=== PATIENT | female | born 1995 | race Caucasian/White ===

== ENCOUNTER 2025-02-01 17:59 | Emergency (ER) | payer OTHER, SELFPAY ==
--- NOTE | ~2025-02-01 | XR_ITS ---
CLINICAL HISTORY: atraumatic pain and swelling Three views of the left ankle. COMPARISON: None provided. FINDINGS: No ankle joint effusion. Ankle mortise appears symmetric on non-stressed views. Talar dome appears intact. Distal tibia and fibula appear intact. Visualized tarsal bones appear intact. No radiopaque foreign body. IMPRESSION: 1. No radiographic evidence of acute injury to the left ankle. This document has been electronically signed by: Lane Taveras MD on 02/01/2025 19:40:20
--- NOTE | ~2025-02-01 | US_ITS ---
CLINICAL HISTORY: Calf family, family history of blood clot Venous duplex ultrasound left lower extremity Comparison: None provided Findings: The visualized deep veins are fully compressible with normal Doppler color flow and spectral tracings. No popliteal cyst. IMPRESSION: 1. Negative for left lower extremity deep vein thrombosis. This document has been electronically signed by: Michael Angel MD on 02/01/2025 22:14:04
[2025-02-01 18:49] VITALS: BP 127/92; PULSE 81; RESP 18; TEMP 36.6; O2SAT 95; BMI 30.5
--- NOTE | 2025-02-01 18:49 | ED_ITS ---
HPI - General Adult General Chief complaint: Extremity Injury, Lower Stated complaint: sent from urgent care Time Seen by Provider: 02/01/25 20:48 Source: patient Mode of arrival: ambulatory Limitations: no limitations History of Present Illness ED Provider: HPI narrative: Patient's strong family history of blood clots in the family patient never had any blood clot woke up in the morning was noticed swelling and pain in the left leg no recent travel not on any control pills no shortness a breath Related Data Allergies Allergy/AdvReac Type Severity Reaction Status Date / Time latex (LATEX) Allergy Intermediate RASH Verified 02/01/25 18:51 Penicillins (PENICILLINS) Allergy Intermediate RASH Verified 02/01/25 18:51 Latex Allergy Unknown rash Uncoded 06/04/17 00:00 Penicillin Allergy Unknown hives Uncoded 06/04/17 00:00 Review of Systems Review of Systems: Yes all other systems are reviewed and are negative PMFSH Social History Social History Advance Directives: No Advance Directives Information Provided: Yes Physical Exam ED Vital Signs: Vital Signs - 24 hr 02/01/25 18:49 02/01/25 20:50 02/01/25 23:19 Temperature 97.8 F 96.6 F L 96.6 F L Pulse Rate 81 90 90 Respiratory Rate 18 18 18 Blood Pressure 127/92 H 119/79 119/79 Pulse Oximetry 95 98 98 Oxygen Delivery Method Room Air Room Air Room Air BMI result Body Mass Index 30.5 Appearance: Alert. Oriented X3. No acute distress. Eyes: no pallor or icterus ENT: Pharynx normal Oral Mucosa moist tympanic membrane intact no erythema, Neck: Normal inspection. Neck supple. CVS: Normal heart rate and rhythm. Pulses normal. Respiratory: No respiratory distress. Equal air entry bilateral, no wheezing/rales/rhonchi Abd: soft, not tender Skin: Skin warm and dry. Normal skin color. Normal skin turgor. Extremities: + left lower extremity edema, no calf tenderness jayne test negative Neuro: Oriented X 3. Course Course Course Narrative: This is a rapid medical exam performed by Rosanna Osman NP: Additional HPI, ROS, PE not included below will be deferred to primary provider. Patient is a 29-year-old female presenting from urgent care for eval of atraumatic L ankle pain and swelling which began today. Did not have any imaging yet. No erythema, not on OCPs. Plan: x-ray, ? u/S Medical Decision Making Medical Decision Making MDM Narrative: Patient is a nonspecific swelling of the left lower extremity x-ray and venous Doppler negative advised to keep the legs leg elevated Independent Interpretation I performed an independent interpretation of an: Ultrasound Interpretation: Negative DVT negative xray Radiology Impression Discussion of test interpretation with radiology: I have reviewed the radiologist's reading. Discharge Plan Discharge Clinical Impression: Leg edema, left Patient Disposition: Home, Self-Care Instructions: Leg Edema (ED) Additional Instructions: Your x-ray and venous Doppler negative for blood clots or fracture Keep your left leg elevated It is likely dependent edema Follow up with your PCP as needed Stand Alone Forms: Work/School Release Interventions: ED Discharge Assessment Last Done: 02/01/25 23:19 Discharge Date/Time: 02/01/25 23:20 Print Language: Icelandic
[2025-02-01 20:50] VITALS: BP 119/79; PULSE 90; RESP 18; TEMP 35.9; O2SAT 98
--- OUTSIDE RECORDS SUMMARY | 2025-02-01 20:59 | XMS_ITS ---
Author Name [facility] Organization Unknown Care Team Organization Name Specialty Phone Email Start Date End Da te [facility] Janel Alvarado Primary Care 09/25/2022 02/10/2024 [facility] Mary Kang Primary Care 05/01/20222023
[2025-02-01 23:19] VITALS: BP 119/79; PULSE 90; RESP 18; TEMP 35.9; O2SAT 98
== END 2025-02-01 23:20 | disposition home or self-care (01) ==
PROVIDERS: Emergency Provider Internal Medicine; PCP Family Medicine
DX: R60.0 Localized edema (principal); M79.89 Other specified soft tissue disorders; M25.572 Pain in left ankle and joints of left foot
CPT/HCPCS: 73610; 93971; 99283; 99284

== ENCOUNTER → 2025-02-01 18:51 | Outpatient (BNV) | payer OTHER, SELFPAY | PROVIDERS: Visit Provider Radiology Diagnostic Radiology | DX: M79.605 Pain in left leg (principal); M25.572 Pain in left ankle and joints of left foot; R22.42 Localized swelling, mass and lump, left lower limb | CPT/HCPCS: 73610; 93971 ==

== ENCOUNTER 2025-03-12 23:11 | Emergency (ER) | payer OTHER, SELFPAY ==
[2025-03-12 23:17] VITALS: BP 109/69; PULSE 84; RESP 16; TEMP 36.4; O2SAT 100; BMI 30.5
--- NOTE | 2025-03-12 23:21 | ED_ITS ---
HPI - General Adult General Chief complaint: General Medical Stated complaint: General Medical Time Seen by Provider: 03/13/25 04:33 Source: patient Limitations: no limitations History of Present Illness ED Provider: Malika Bowens PA-C HPI narrative: 30-year-old female presents with vaginitis. Patient states she has noticed new excessive vaginal discharge over the past few days. Denies risk for STD, pelvic pain, nausea vomiting. Associated pruritus. Patient also noticed a subtle swelling along the inner margin of the left side of her labia, it is somewhat uncomfortable. Denies fever. Related Data Previous Rx's ?Medication ?Instructions ?Recorded fluconazole 150 mg tablet 150 mg PO Q3D 2 doses #2 tab s 03/13/25 metronidazole 500 mg tablet 500 mg PO BID 10 days #20 tabs 03/13/25 miconazole nitrate 1,200 mg-2 % See Rx Instructions va ginal 03/13/25 vaginal kit .COMPLEX #1 ea Allergies Allergy/AdvReac Type Severity Reaction Status Date / Time latex (LATEX) Allergy Intermediate RASH Verified 03/12/25 23:20 Penicillins (PENICILLINS) Allergy Intermediate RASH Verified 03/12/25 23:20 Latex Allergy Unknown rash Uncoded 03/12/25 23:20 Penicillin Allergy Unknown hives Uncoded 03/12/25 23:20 Review of Systems Review of Systems: Yes all other systems are reviewed and are negative Constitutional: Constitutional: Denies fatigue and Denies fever(s) Gastrointestinal: Gastrointestinal: Denies abdominal pain, Denies nausea and Denies vomiting Genitourinary: Genitourinary: Denies dysuria, Denies pelvic pain, Reports vaginal discharge, Denies vaginal odor and Reports vaginal pruritus Musculoskeletal: Musculoskeletal: Denies back pain Endocrine: Endocrine: Denies fatigue [facility] Past Medical History Attestation statement: The following information was validated with the patient. Social History Social History Alcohol intake: never Smoked in Last 30 Days: Yes Use of substances other than those prescribed or required for medical reasons: Yes Substance Use Type: Marijuana Substance Use Frequency: Daily Advance Directives: No Advance Directives Information Provided: Yes Do you have a plan to hurt others: No Plan Physical Exam ED Vital Signs: Vital Signs - 24 hr 03/12/25 23:17 03/13/25 03:33 03/13/25 05:01 Temperature 97.5 F 97.8 F Pulse Rate 84 67 69 Respiratory Rate 16 20 16 Blood Pressure 109/69 105/50 L 111/52 L Pulse Oximetry 100 100 100 Oxygen Delivery Method Room Air Room Air Room Air 03/13/25 05:54 03/13/25 06:17 Temperature 97.8 F Pulse Rate 60 60 Respiratory Rate 14 14 Blood Pressure 94/55 L 94/55 L Pulse Oximetry 99 99 Oxygen Delivery Method Room Air Room Air BMI result Body Mass Index 30.5 Const Other: Alert well-appearing Orientation/consciousness: patient oriented x3 Resp Effort & Inspection: normal respiratory effort Cardio Other: Normal peripheral perfusion GI Other: Abdomen is soft, nontender no guarding no distention Other: Normal external genitalia no lesions, the region in question along inner margin of left lower labia there is a subtle prominence of the tissue, it is not a cyst it is not indurated or tender to palpation, copious amounts of white discharge noted, no CMT no adnexal tenderness, the cervix is pink and non friable, the pelvic exam was not uncomfortable for the patient. Skin Other: Warm dry no rash Neuro General: patient oriented x3, gait normal, no focal motor deficits and CN's II- XI intact bilaterally Psych Other: Cooperative Course Course Course Narrative: This is a RME preformed in triage by Yasmeen James PA-C. Date: 03/12/25, time 1122 pm. Patient presents with labia mass. Work UP: no labs, pic on phone, looks like small mass pea sized, not abscess maybe bartholins, she requests pelvic exam 'so she can sleep tonight'. no gu sxs otherwise, screened last week for sTIs negative. no pelvic trauma. Will defer full ROS and PE to treating provider. Patient will continued to be monitored in the interim. Medical Decision Making Medical Decision Making MDM Narrative: 30-year-old female presents with vaginitis. Patient states she has noticed new excessive vaginal discharge over the past few days. Denies risk for STD, pelvic pain, nausea vomiting. Associated pruritus. Patient also noticed a subtle swelling along the inner margin of the left side of her labia, it is somewhat uncomfortable. Denies fever. No chronic issues History: Per patient I have considered the following differential diagnoses: Cervicitis, PID, TOA, BV, trich, candidal infection, Bartholin gland cyst, herpetic lesion, syphilis Plan: In regard to the swelling along the labia, there was no swelling present, I think her tissues are reactive from the vaginal discharge. Her pelvic exam was unremarkable, she has no risk for STD, we will be screening for GC chlamydia, BV panel. The panel we will not result tonight I will call her tomorrow with the results . Given the pelvic exam did not elicit discomfort she has no pelvic pain exteriorly, no indication for imaging, I have very low suspicion for intrapelvic pathology such as TOA or PID. I have independently Reviewed the following tests: Labs: Positive for Viktoriya, BV, trich, gonorrhea chlamydia negative Differential Diagnosis Differential Diagnoses: The differential diagnosis associated with the presentation includes See medical decision may Admission/Observation Consideration of admission/observation: Escalation of care including admission/observation considered Not applicable Lab Data MDM Lab Attestation statement: I reviewed the patient's lab results. Labs: Lab Results 03/13/25 Range/Units 05:02 Chlam trachomat DNA PCR NOT DETECTED (Not Detect.) N.gonorrhoeae DNA (PCR) NOT DETECTED (Not Detect.) T. vaginalis (PCR) NOT DETECTED (Not Detect) Bact vaginosis (PCR) NEGATIVE (Negative) C. krusei/glabrata (PCR) NOT DETECTED (Not Detect) Viktoriya group (PCR) DETECTED A (Not Detect) Discharge Plan Discharge Clinical Impression: Vaginitis Patient Disposition: Home, Self-Care Instructions: Vaginal Discharge (ED) Additional Instructions: You have vaginal swabs pending, the results should return by this evening. I will contact you later today after 6 p.m., and send prescriptions to your pharmacy. Prescriptions: New metronidazole 500 mg tablet 500 mg PO BID 10 Days Qty: 20 0RF fluconazole 150 mg tablet 150 mg PO Q3D Qty: 2 0RF Rx Instructions: may repeat second dose 72 hrs after first dose if symptoms persist miconazole nitrate 1,200-2 mg-% kit See Rx Instructions .ROUTE .COMPLEX Qty: 1 0RF Rx Instructions: place 1 insert into vagina at bedtime day 1;apply cream to area outside vagina twice daily for up to 7 days Interventions: ED Discharge Assessment Last Done: 03/13/25 06:17 Discharge Date/Time: 03/13/25 06:20 Print Language: Setswana
[2025-03-13 03:33] VITALS: BP 105/50; PULSE 67; RESP 20; TEMP 36.6; O2SAT 100
--- OUTSIDE RECORDS SUMMARY | 2025-03-13 03:35 | XMS_ITS | Encounter Summary ---
Author Organization [facility] Address [address] [place] [address] Care Team Providers Care Aircraft Assembler Name Role Phone Ghislaine Rayo MD Primary Care Provider Laura Pederson MD Primary Care Provider Janel Wren MD Primary Care Prov ider Reason for Visit * Reason Onset Date Comments er follow up 02/10/2020 Encounter Details Date Type Department Care Team Description 02/10/2020 Telephone Adult Medicine [address] [address] Ghislaine Rayo MD er follow up Social History Tobacco Use Types Packs/Day Years Used Date Smoking Tobacco: Never Smokeless Tobacco: Never Alcohol Use Standard Drinks/Week Comments No 0 (1 standard drink = 0.6 oz pur e alcohol) Sex Assigned at Date Recorded Not on file Job Start Date Occupation Industry Not on file Not on file Not on file documented as of this encounter Miscellaneous Notes * Telephone Encounter - Yadira Patiño - 02/10/2020 9:43 AM EDT ER follow-up appointment booked YES 02-15-20 If ER or UC follow up, can be booked with APC or MD. If hospital admission follow up MUST be booked with a physician Appointment time: 245PM Provider visit is scheduled with: Shantal Plummer PA-C Hospital/UC center patient was treated at: [facility] Date of visit: 02-08-20 Was this only an ER/UC visit or was the patient admitted to the hospital? ER visit onlyER visit only If patient was admitted what was the date of discharge? N/A Reason/diagnosis for visit or stay: fainting Was visit or stay related to an injury? NO If yes, what was the date of injury (DOI)? N/A If yes, was the injury due to N/A Tests performed: Lab: YES X-ray: YES EKG: YES Other tests. If yes, what?; documented in this encounter Plan of Treatment Not on file documented as of this encounter Visit Diagnoses Not on filedocumented in this encounter Care Teams Aircraft Assembler Relationship Specialty Start Date End Date Ghislaine Rayo MD PCP - General Internal Medicine 09/03/16 03/14/21 Laura Zapata MD PCP - General Internal Medicine 03/15/21 01/21/22 Janel Alvarado MD [address] [place] [id number] PCP - General Internal Medicine 01/22/22 documented as of this encounter
--- OUTSIDE RECORDS SUMMARY | 2025-03-13 03:35 | XMS_ITS | Encounter Summary ---
Author Organization [facility] Address [address] [place] [address] Care Team Providers Care Production Internship Name Role Phone Ghislaine Rayo MD Primary Care Provider Laura Pederson MD Primary Care Provider Janel Wren MD Primary Care Prov ider Reason for Visit * Reason Onset Date Comments Letter 04/20/2019 needs a letter f or housing Encounter Details Date Type Department Care Team Description 04/20/2019 Telephone General Surgery - [place] [address] [facility] [address] [place] [address] Mitesh Saenz MD [address] [place] [address] [address] [place], [place] [id number] Letter (needs a letter for housing) Social History Tobacco Use Types Packs/Day Years [...] encounter Miscellaneous Notes * Telephone Encounter - Alessia Rao - 04/22/2019 1:09 PM EDT Left voice mail for pt to order picker letter. * Telephone Encounter - Eve Tony M.A. - 04/21/2019 2:31 PM EDT Letter pinted and left up front for pt to order picker * Telephone Encounter - Alessia Rao - 04/20/2019 1:05 PM EDT Pt called states she needs a letter for housing saying when she had surgery which was november 12 and that she was not able to work because of the surgery. documented in this encounter Plan of Treatment Not on file documented as of this encounter Visit Diagnoses Not on filedocumented in this encounter Care Teams Production Internship Relationship Specialty Start Date End Date Ghislaine Rayo MD PCP - General Internal Medicine 09/03/16 03/14/21 Laura Zapata MD PCP - General Internal Medicine 03/15/21 01/21/22 Ernestina Mitchell, Janel Fuentes MD [address] [place] [id number] PCP - General Internal Medicine 01/22/22 documented as of this encounter
--- OUTSIDE RECORDS SUMMARY | 2025-03-13 03:35 | XMS_ITS | Encounter Summary ---
Author Organization [facility] Address [address] [place] [address] Care Team Providers Care Certified Nurse Midwife Name Role Phone Ghislaine Rayo MD Primary Care Provider Laura Pederson MD Primary Care Provider Janel Wren MD Primary Care Prov ider Encounter Details Date Type Department Care Team Description 04/01/2019 Telephone General Surgery [facility] [address] [phone] Christopher Rod MD [address] [address] Social History Tobacco Use Types Packs/Day Years Used Date Smoking Tobacco: Never Smokeless Tobacco: Never Alcohol Use Standard Drinks/Week Comments No 0 (1 standard drink = 0.6 oz pur e alcohol) Sex Assigned at Date Recorded Not on file Job Start Date Occupation Industry Not on file Not on file Not on file documented as of this encounter Plan of Treatment Not on file documented as of this encounter Visit Diagnoses Not on filedocumented in this encounter Care Teams Certified Nurse Midwife Relationship Specialty Start Date End Date Ghislaine Rayo MD PCP - General Internal Medicine 09/03/16 03/14/21 Laura Zapata MD PCP - General Internal Medicine 03/15/21 01/21/22 Janel Alvarado MD [address] [place] [id number] PCP - General Internal Medicine 01/22/22 documented as of this encounter
--- OUTSIDE RECORDS SUMMARY | 2025-03-13 03:35 | XMS_ITS | Encounter Summary ---
Author Organization [employer] [facility] Address [address] [place] [address] Care Team Providers Care Civil Cad Tech Name Role Phone Ghislaine Rayo MD Primary Care Provider Laura Pederson MD Primary Care Provider Janel Wren MD Primary Care Prov ider Encounter Details Date Type Department Care Team Description 11/12/2018 Transfer Records Medical Records [address] [place] [id number] Abstract, Provider Social History Tobacco Use Types Packs/Day Years [...] on filedocumented in this encounter Care Teams Civil Cad Tech Relationship Specialty Start Date End Date Ghislaine Ryao MD PCP - General Internal Medicine 09/03/16 03/14/21 Laura Zapata MD PCP - General Internal Medicine 03/15/21 01/21/22 Janel Alvarado MD [address] [place] [id number] PCP - General Internal Medicine 01/22/22 documented as of this encounter
--- OUTSIDE RECORDS SUMMARY | 2025-03-13 03:35 | XMS_ITS | Encounter Summary ---
Author Organization [facility] Address [address] [place] [address] Care Team Providers Care Cash Register Repairer Name Role Phone Ghislaine Rayo MD Primary Care Provider Laura Pederson MD Primary Care Provider Janel Wren MD Primary Care Prov ider Encounter Details Date Type Department Care Team Description 02/05/2017 Release of Information Medical Records [address] [place] [id number] Abstract, Provider Social History Tobacco Use Types [...] on filedocumented in this encounter Care Teams Cash Register Repairer Relationship Specialty Start Date End Date Ghislaine Rayo MD PCP - General Internal Medicine 09/03/16 03/14/21 Laura Zapata MD PCP - General Internal Medicine 03/15/21 01/21/22 Janel Alvarado MD [address] [place] [id number] PCP - General Internal Medicine 01/22/22 documented as of this encounter
--- OUTSIDE RECORDS SUMMARY | 2025-03-13 03:35 | XMS_ITS | Encounter Summary ---
Author Organization [employer] [facility] Address [address] [place] [address] Care Team Providers Care Machine Operator Farmworker Name Role Phone Laura Zapata MD Primary Care Provider Janel Wren MD Primary Care Prov ider Encounter Details Date Type Department Care Team Description 09/28/2021 Walk In Clinic Visit Medical Records [address] [place] [address] Social History Tobacco Use Types Packs/Day Years Used Date Smoking Tobacco: Never Smokeless Tobacco: Never Alcohol Use Standard Drinks/Week Comments Yes 0 (1 standard drink = 0.6 oz pur e alcohol) rare Sex Assigned at Date Recorded Not on file Job Start Date Occupation Industry Not on file Not on file Not on file documented as of this encounter Plan of Treatment Not on file documented as of this encounter Visit Diagnoses Not on filedocumented in this encounter Care Teams Machine Operator Farmworker Relationship Specialty Start Date End Date Laura Zapata MD PCP - General Internal Medicine 03/15/21 01/21/22 Janel Alvarado MD [address] [place] [address] PCP - General Internal Medicine 01/22/22 documented as of this encounter
--- OUTSIDE RECORDS SUMMARY | 2025-03-13 03:35 | XMS_ITS | Encounter Summary ---
Author Organization [employer] [facility] Address [address] [place] [address] Care Team Providers Care Treating Plant Pumper Name Role Phone Ghislaine Rayo MD Primary Care Provider Laura Pederson MD Primary Care Provider Janel Wren MD Primary Care Prov ider Encounter Details Date Type Department Care Team Description 02/06/2019 Casino Beverage Server Report Medical Records [address] [place] [id number] Siva Marquez MD Social History Tobacco Use Types Packs/Day Years [...] on filedocumented in this encounter Care Teams Treating Plant Pumper Relationship Specialty Start Date End Date Ghislaine Rayo MD PCP - General Internal Medicine 09/03/16 03/14/21 Laura Zapata MD PCP - General Internal Medicine 03/15/21 01/21/22 Janel Alvarado MD [address] [place] [phone] PCP - General Internal Medicine 01/22/22 documented as of this encounter
--- OUTSIDE RECORDS SUMMARY | 2025-03-13 03:35 | XMS_ITS | Encounter Summary ---
Author Organization [facility] Address [address] [place] [address] Care Team Providers Care Project Manager Industrial Name Role Phone Ghislaine Rayo MD Primary Care Provider Laura Pederson MD Primary Care Provider Janel Wren MD Primary Care Prov ider Reason for Visit * Reason Onset Date Comments Gi Outreach Colonoscopy 12/11/2016 Encounter Details Date Type Department Care Team Description 12/11/2016 Telephone Gastroenterology - [address] [address] Reanna Alvares MD Gi Outreach Colonoscopy Social History Tobacco Use Types Packs/Day Years [...] encounter Miscellaneous Notes * Telephone Encounter - Jose Angel Cid PA-C - 12/12/2016 9:05 AM EDT Pt experienced abd pain after colonoscopy. Woke up at 4 am last night with pain. It is the same pain as before colonoscopy but more intense. It causes bowel urgency and she has 3 soft/loose BMs per day. No vomiting, rectal bleeding, anorexia. Colonoscopy up to terminal ileum was completely normal. Bx neg for microscopic colitis. May need to consider small bowel follow through. Will have her try dicyclomine. Pt made aware of drowsiness side effect and to take the first 2 doses at bedtime. F/u in2-4 weeks. Pt verbalizes understanding and agrees with plan. * Telephone Encounter - Jen Rosales R.N. - 12/11/2016 9:58 AM EDT 0930 patient returned my call immediately. She says she has upper abdominal pain that she describesas a sharp spasm. She cannot tell me if this pain is different than what she had prior to colonoscopy. She c/o nausea without vomiting. She has had an orange juice and an apple today. Says she feels a little bloated and lightheaded. She denies fever or rectal bleeding. She is currently at work,but is requesting a note to leave. I reassured her that colon and terminal ileum looked normal. She was instructed to await pathology report for random colonic biopsies. I explained that Dr. Alvares is not back in the office until Saturday, but I will message another member of the team. She was instructed to call us back or go to ER if symptoms worsen. Message routed to Jose Angel. Please advise. Thanks. * Telephone Encounter - Jen Rosales R.N. - 12/11/2016 9:25 AM EDT Left message on machine. Requested a call back to discuss symptoms * Telephone Encounter - Izabella Rosas - 12/11/2016 8:49 AM EDT Patient had colonoscopy yesterday with Dr Alvares. She is having upper abdominal pain which Started this morning. She said she has not eaten anything heavy. documented in this encounter Plan of Treatment Not on file documented as of this encounter Visit Diagnoses Diagnosis Periumbilical abdominal pain- Primary Abdominal pain, periumbilic documented in this encounter Care Teams Project Manager Industrial Relationship Specialty Start Date End Date Ghislaine Rayo MD PCP - General Internal Medicine 09/03/16 03/14/21 Laura Zapata MD PCP - General Internal Medicine 03/15/21 01/21/22 Ernestina Mitchell, Janel Fuentes MD [address] [place] [id number] PCP - General Internal Medicine 01/22/22 documented as of this encounter
--- OUTSIDE RECORDS SUMMARY | 2025-03-13 03:35 | XMS_ITS | Encounter Summary ---
Author Organization [facility] Address [address] [place] [address] Care Team Providers Care Adult Day Care Worker Name Role Phone Ghislaine Rayo MD Primary Care Provider Waqar Ayon, Pcp Primary Care Provider Ghislaine Gary MD Primary Care Provider Laura Pederson MD Primary Care Provider Waqari Janel Shrestha MD Primary Care Prov ider Encounter Details Date Type Department Care Team Description 10/17/2015 Electronic Video Games Servicer Report Medical Records [address] [place] [id number] [place] [address] Social History Tobacco Use Types Packs/Day Years Used Date Smoking Tobacco: Never Smokeless Tobacco: Never Alcohol Use Standard Drinks/Week Comments Yes 0 (1 standard drink = 0.6 oz pur e alcohol) occ-not with Sex Assigned at Date Recorded Not on file Job Start Date Occupation Industry Not on file Not on file Not on file documented as of this encounter Plan of Treatment Not on file documented as of this encounter Visit Diagnoses Not on filedocumented in this encounter Care Teams Adult Day Care Worker Relationship Specialty Start Date End Date Ghislaine Rayo MD PCP - General Internal Medicine 09/03/11 08/27/16 Gabo, Krissy PCP - General Internal Medicine 08/28/16 09/02/16 Ghislaine Rayo MD PCP - General Internal Medicine 09/03/16 03/14/21 Laura Zapata MD PCP - General Internal Medicine 03/15/21 01/21/22 Jnael Alvarado MD [address] [place] [id number] PCP - General Internal Medicine 01/22/22 documented as of this encounter
--- OUTSIDE RECORDS SUMMARY | 2025-03-13 03:35 | XMS_ITS | Encounter Summary ---
Author Organization [facility] Address [address] [place] [address] Care Team Providers Care Employment Legal Assistant Name Role Phone Ghislaine Rayo MD Primary Care Provider Laura Pederson MD Primary Care Provider Janel Wren MD Primary Care Prov ider Encounter Details Date Type Department Care Team Description 01/30/2021 [address] And Building Decorator Report Medical Records [address] [place] [id number] Carlos Kc MD Social History Tobacco Use Types Packs/Day Years Used Date Smoking Tobacco: Never Smokeless Tobacco: Never Alcohol Use Standard Drinks/Week Comments Yes 0 (1 standard drink = 0.6 oz pur e alcohol) rare Sex Assigned at Date Recorded Not on file Job Start Date Occupation Industry Not on file Not on file Not on file COVID-19 Exposure Response Date Recorded In the last month, have you been in contact with someone who was confirmed or suspected to have Coronavirus / COVID-19? No / Unsure 01/30/2021 2:02 PM EDT documented as of this encounter Plan of Treatment Not on file documented as of this encounter Visit Diagnoses Not on filedocumented in this encounter Care Teams Employment Legal Assistant Relationship Specialty Start Date End Date Ghislaine Rayo MD PCP - General Internal Medicine 09/03/16 03/14/21 Laura Zapata MD PCP - General Internal Medicine 03/15/21 01/21/22 Janel Alvarado MD [address] [place] [id number] PCP - General Internal Medicine 01/22/22 documented as of this encounter
--- OUTSIDE RECORDS SUMMARY | 2025-03-13 03:35 | XMS_ITS | Encounter Summary ---
Author Organization [employer] [facility] Address [address] [place] [address] Care Team Providers Care Hospital Cleaner Name Role Phone Ghislaine Rayo MD Primary Care Provider Laura Pederson MD Primary Care Provider Janel Wren MD Primary Care Prov ider Encounter Details Date Type Department Care Team Description 01/19/2019 Telephone General Surgery - [place] [address] [facility] [address] [place] [address] Mitesh Saenz MD [address] [place] [address] [address] [place], [place] [id number] Social History Tobacco Use Types Packs/Day Years [...] encounter Miscellaneous Notes * Telephone Encounter - Anjelica Lemus M.A. - 01/20/2019 9:10 AM EDT Spoke to patient, hives are still apparent, patient went to PCP this morning and has referral to allergy department. Received 4 more tabs of Prednisone form ER recently as well as allergy med (unknown) Patient will be here for follow up appointment 03/[address] Saenz * Telephone Encounter - Mitesh Saenz MD - 01/20/2019 7:56 AM EDT I don't think that it is related to the surgery because it has been some time since the operation. Doubt very much an allergic reaction to a medication this far out. * Telephone Encounter - Jimbo Griffiths - 01/19/2019 1:52 PM EDT Pt is calling again for this * Telephone Encounter - Jonathan Scott - 01/19/2019 11:39 AM EDT Pt called in stating that she had a sleeve done on Nov 12 2018. She's recently had hives for 3 days, went to the emergency room and is taking Prednisone and wants to know if the surgery has anything to do with the hives. documented in this encounter Plan of Treatment Not on file documented as of this encounter Visit Diagnoses Not on filedocumented in this encounter Care Teams Hospital Cleaner Relationship Specialty Start Date End Date Ghislaine Rayo MD PCP - General Internal Medicine 09/03/16 03/14/21 Laura Zapata MD PCP - General Internal Medicine 03/15/21 01/21/22 Janel Alvarado MD [address] [place] [id number] PCP - General Internal Medicine 01/22/22 documented as of this encounter
--- OUTSIDE RECORDS SUMMARY | 2025-03-13 03:35 | XMS_ITS | Encounter Summary ---
Author Organization [facility] Address [address] [place] [address] Care Team Providers Care Pattern Grader Name Role Phone Ghislaine Rayo MD Primary Care Provider Waqar Ayon, Pcp Primary Care Provider Ghislaine Gary MD Primary Care Provider Laura Pederson MD Primary Care Provider Waqari Janel Shrestha MD Primary Care Prov ider Encounter Details Date Type Department Care Team Description 09/29/2015 Zika Virus Medical Records [address] [place] [id number] Abstract, Provider Social History Tobacco Use Types [...] on filedocumented in this encounter Care Teams Pattern Grader Relationship Specialty Start Date End Date Ghislaine Rayo MD PCP - General Internal Medicine 09/03/11 08/27/16 Gabo, Pcp PCP - General Internal Medicine 08/28/16 09/02/16 Ghislaine Rayo MD PCP - General Internal Medicine 09/03/16 03/14/21 Laura Zapata MD PCP - General Internal Medicine 03/15/21 01/21/22 Janel Alvarado MD [address] [place] [address] PCP - General Internal Medicine 01/22/22 documented as of this encounter
--- OUTSIDE RECORDS SUMMARY | 2025-03-13 03:35 | XMS_ITS | Clinical Summary ---
Author Organization [facility] Address [address] [place] [address] Care Team Providers Care Field Applications Specialist Name Role Phone Janel Michael MD Primary Care Prov ider Allergies Active Allergy Reactions Criticality Noted Date Comments Latex Itching 04/05/2015 Penicillins Diarrhea,Rash 04/21/2015 Medications ibuprofen (ADVIL,MOTRIN) 800 mg tablet TK 1 T PO Q 8 H PRN P 03/23/2020 Active fexofenadine (ARELIS) 180 mg tablet Take 1 tablet (180 mg total) by mouth 1 (one) time each day. 01/21/2019 Active ergocalciferol (VITAMIN D-2) 1,250 mcg (50,000 unit) capsule Take 1 capsule (50,000 Units total) by mouth 3 (three) times a week. 03/26/2022 Active multivit-min/fe rrous fumarate (MULTI VITAMIN ORAL) Take by mouth. 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 IBS (irritable bowel syndrome) 12/12/2016 Breast mass, right 10/18/2014 Immunizations Name Administration Dates Next Due HPV, Quadrivalent 01/12/2013 Influenza Quadravalent, MDCK , 0.5ml, preservative free (Flucelvax) 6mo and older 05/06/2018 Influenza trivalent, 0.5mL, preservative free (Fluarix; FluLaval; Fluzone) ages 6mo and older (Afluria) 3 years and older 05/01/2017,04/29/2015,04/30/2012 PPD Test 10/30/2016,12/14/2013 Tdap Tetanus diptheria acell ular pertussis (Boostrix; Adacel) 7yo and older 10/07/2015,12/14/2013 Varicella live (Varivax) 12mo and older 12/17/19 14 Surgical History Surgery Date Site/Laterality Comments OTHER SURGICAL HISTORY 10/2014 PROCEDURE: NJ EXC CYST/ABERRANT BREAST TISSUE OPEN 1/> LESION COLONOSCOPY W/ BIOPSIES 12/10/2016 PROCEDURE: NJ COLONOSCOPY W/BIOPSY SINGLE/MULTIPLE; COMMENT: normal mucosa, random bx to r/o micro colitis - negative biopsies TUBAL LIGATION 2017 PROCEDURE: HISTORICAL TUBAL LIGATION CARPAL TUNNEL RELEASE 10/2017 Left PROCEDURE: HISTORICAL CARPAL TUNNEL REL BARIATRIC SURGERY 11/12/2018 PROCEDURE: NJ LAPS GSTRC RSTRICTIV PX LONGITUDINAL GASTRECTOMY; COMMENT: sleeve gastrectomy - [facility]enz[facility] Medical History Medical History Date Comments BRCA negative 2011 DX:BRCA negative ; COMMENT: [place] at [facility] IBS (irritable bowel syndrome) 12/12/2016 D X:IBS (irritable bowel syndrome) Breast mass, right 10/18/2014 DX:Breast mas s, right 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 DX:Childhood as thma Class 3 severe obesity due t o excess calories without serious comorbidity with body mass index (BMI) of 45.0 to 49.9 in adult (CMS/HCC V24, CMS/HCC V28) 10/28/2018 DX:Class 3 severe obesity du e to excess calories without serious comorbidity with body mass index (BMI) of 45.0 to 49.9 in adult ([facility]) 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 DX:S/P laparoscopic sleeve gastrectomy Urinary tract infection DX:Urina ry tract infection Family History Medical History Relation Name Comments Breast cancer Aunt 1 paternal Depression Aunt 2 maternal No Known Problems Brother Hypertension Father HLD Hypertension Maternal Grandmother catarac ts Arthritis Mother Heart attack Paternal Grandfather Ovarian cancer Paternal Grandmother from this at 56 Blindness Neg Hx Colon cancer Neg Hx Glaucoma Neg Hx Macular degeneration Neg Hx Strabismus Neg Hx Uterine cancer Neg Hx Relation Name Status Comments Aunt 1 paternal Alive Aunt 2 maternal Alive Brother Alive healthy Father Alive htn Maternal Grandfather Alive Maternal Grandmother Alive Mother Alive CTS Paternal Grandfather Paternal Grandmother Son 1 Alive 11/08/2015; Emi ramirez; healthy Son 2 Alive Social History Tobacco Use Types Packs/Day Years Used Date Smoking Tobacco: Never Smokeless Tobacco: Never Alcohol Use Standard Drinks/Week Comments Yes 0 (1 standard drink = 0.6 oz pur e alcohol) Comments Unknown Sex and Gender Information Value Date Recorded Sex Assigned at Not on file Legal Sex Female 12:43 PM EST Gender Identity Not on file Sexual Orientation Not on file Obstetrics History Last Filed Vital Signs Vital Sign Reading Time Taken Comments Blood Pressure 106/74 01/21/2023 8:58 AM EDT Pulse 66 01/21/2023 8:58 AM EDT Temperature - - Respiratory Rate - - Oxygen Saturation - - Inhaled Oxygen Concentration - - Weight 72.2 kg (159 lb 2 oz) 01/21/2023 8:58 AM EDT Height 157.5 cm (5' 2 ) 06/22/2022 11:22 AM EST Body Mass Index 29.1 06/22/2022 11:22 AM EST Plan of Treatment Health Maintenance Due Date Last Done Comments Hepatitis B Vaccines (1 of 3 - 19+ 3-dose series) 02/22/2012 HPV Vaccines (2 - 3-dose series) 02/09/2013 01/12/2013 Social Influencers of Health Screening 06/02/2022 Depression Screening 06/24/2024 COVID-19 Vaccine ( season) 2025 12/14/2020, 11/23/2020 Influenza Vaccine (#1) 2025 8, 05/01/2017, 04/29/2015, Additional history exists DTaP,Tdap,and Td Vaccines (3 - Td or Tdap) 10/06/2025 10/07/2015, 12/14/2013 Cervical Cancer Screening: HPV 06/22/2027 06/22/2022 Varicella Vaccines Aged Out 12/16/2013 No longer eligible based on patient's age to complete this topic HIV Screening Completed 01/21/2023 Hepatitis C Screening Completed 01/21/2023 HIB Vaccines Aged Out No longer eligi ble based on patient's age to complete this topic Hepatitis A Vaccines Aged Out No long er eligible based on patient's age to complete this topic IPV Vaccines Aged Out No longer eligi ble based on patient's age to complete this topic MMR Vaccines Aged Out No longer eligi ble based on patient's age to complete this topic Meningococcal ACWY Vaccine Aged Out N o longer eligible based on patient's age to complete this topic Meningococcal B Vaccine Aged Out No l onger eligible based on patient's age to complete this topic Pneumococcal Vaccine: Pediatrics (0 to 5 Years) and At-Risk Patients (6 to 49 Years) Aged Out No longer eligible based on patient's age to complete this topic RSV Immunization Patients Under 20 months Aged Out No longer eligible based on patient's age to complete this topic Procedures Procedure Name Priority Date/Time Associated Diagnosis Comments HEPATITIS C SCREENING Routine 01/21/2023 HIV SCREENING Routine 01/21/2023 HPV Routine 06/22/2022 from Last 3 Months or Most Recently Relevant to Health Maintenance Results * HIV Screening (01/21/2023) [facility] HIV Screening abstract [facility] Provider HEALTH MAINTENANCE Final Result * Hepatitis C Screening (01/21/2023) Pathologist [facility] Hepatitis C Screening abstract [facility] Provider HEALTH MAINTENANCE Final Result * Cervical Cancer Screening: HPV (06/22/2022) [facility] Cervical Cancer Screening: HPV negative, abstracted Historical Provider HEALTH MAINTENANCE Final Result from Last 3 Months or Most Recently Relevant to Health Maintenance Care Teams Field Applications Specialist Relationship Specialty Start Date End Date Janel Michael MD PCP - General Internal Medicine 01/22/22
--- OUTSIDE RECORDS SUMMARY | 2025-03-13 03:35 | XMS_ITS | Encounter Summary ---
Author Organization [facility] Address [address] [place] [address] Care Team Providers Care Metallurgical Analyst Name Role Phone Ghislaine Rayo MD Primary Care Provider Laura Pederson MD Primary Care Provider Janel Wren MD Primary Care Prov ider Reason for Visit * Reason Onset Date Comments other 02/06/2021 follow-up call Encounter Details Date Type Department Care Team Description 02/06/2021 Telephone [facility] [address] [address] Darrick Mccabe MD [address] [address] other (follow-up call) Social History Tobacco Use Types Packs/Day Years [...] PM EDT documented as of this encounter Miscellaneous Notes * Telephone Encounter - Yves Collier - 02/07/2021 9:02 AM EDT Spoke to patient and advised her not to have a tattoo done until after she has properly healed fromsurgery which is scheduled on 02/28/21. She voiced her understanding and will discuss this further ather 2 week post op visit. * Telephone Encounter - Alisa Boles - 02/06/2021 11:44 AM EDT Patient is calling office stating that she has upcoming SX scheduled on 02/28/21 fro [facility]. She is inquiring on if it is ok to get a Tatoo this week. It will be on her other arm. Please advise. Please call patient back @ [phone]. documented in this encounter Plan of Treatment Not on file documented as of this encounter Visit Diagnoses Not on filedocumented in this encounter Care Teams Metallurgical Analyst Relationship Specialty Start Date End Date Ghislanie Rayo MD PCP - General Internal Medicine 09/03/16 03/14/21 Laura Zapata MD PCP - General Internal Medicine 03/15/21 01/21/22 Janel Alvarado MD [address] [place] [id number] PCP - General Internal Medicine 01/22/22 documented as of this encounter
--- OUTSIDE RECORDS SUMMARY | 2025-03-13 03:35 | XMS_ITS | Encounter Summary ---
Author Organization [facility] Address [address] [place] [address] Care Team Providers Care Whipper Beater Name Role Phone Ghislaine Rayo MD Primary Care Provider Waqar Ayon, Pcp Primary Care Provider Ghislaine Gary MD Primary Care Provider Laura Pederson MD Primary Care Provider Janel Wren MD Primary Care Prov ider Encounter Details Date Type Department Care Team Description 01/16/2012 Release of Information Medical Records [address] [place] [address] Abstract, Provider Social History Tobacco Use Types [...] on filedocumented in this encounter Care Teams Whipper Beater Relationship Specialty Start Date End Date Ghislaine Rayo MD PCP - General Internal Medicine 09/03/11 08/27/16 Krissy Ayon PCP - General Internal Medicine 08/28/16 09/02/16 Ghislaine Rayo MD PCP - General Internal Medicine 09/03/16 03/14/21 Laura Zapata MD PCP - General Internal Medicine 03/15/21 01/21/22 Janel Alvarado MD [address] [place] [address] [place] [address] PCP - General Internal Medicine 01/22/22 documented as of this encounter
--- OUTSIDE RECORDS SUMMARY | 2025-03-13 03:35 | XMS_ITS | Encounter Summary ---
Author Organization [facility] Address [address] [place] [address] Care Team Providers Care Accounting Associate Name Role Phone Laura Zapata MD Primary Care Provider Janel Wren MD Primary Care Prov ider Reason for Visit * Reason Onset Date Comments Work note 04/05/2021 Encounter Details Date Type Department Care Team Description 04/05/2021 Telephone [facility] [address] [phone] Darrick Mccabe MD [address] [address] Work note Social History Tobacco Use Types Packs/Day Years [...] have Coronavirus / COVID-19? 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 She wanted a note to return to work before her 8 weeks. She would like a note stating she can be on light duty until 04/25/21 and then she would like it faxed as soon as possible to [phone]. Please see previous telephone encounter from 04/04/21. documented in this encounter Plan of Treatment Not on file documented as of this encounter Visit Diagnoses Not on filedocumented in this encounter Care Teams Accounting Associate Relationship Specialty Start Date End Date Laura Zapata MD PCP - General Internal Medicine 03/15/21 01/21/22 Ernestina Mitchell, Janel Fuentes MD [address] [place] [id number] PCP - General Internal Medicine 01/22/22 documented as of this encounter
[2025-03-13 05:01] VITALS: BP 111/52; PULSE 69; RESP 16; O2SAT 100
--- NOTE | 2025-03-13 05:12 | MHC.EDTECH ---
Swabs sent few minutes ago. Pa aware System doesnt say received
[2025-03-13 05:54] VITALS: BP 94/55; PULSE 60; RESP 14; O2SAT 99
[2025-03-13 06:17] VITALS: BP 94/55; PULSE 60; RESP 14; TEMP 36.6; O2SAT 99
[2025-03-13 09:59] LABS: Bacterial Vaginosis PCR NEGATIVE (Negative); Candida Group PCR DETECTED (Not Detect); Candida glab krusei PCR NOT DETECTED (Not Detect); Trichomonas vaginalis PCR NOT DETECTED (Not Detect)
[2025-03-13 10:29] LABS: CT PCR NOT DETECTED (Not Detect.); NG PCR NOT DETECTED (Not Detect.)
== END 2025-03-13 06:20 | disposition home or self-care (01) ==
PROVIDERS: Physician Assistant Medical; Emergency Provider Emergency Medicine; PCP Internal Medicine
DX: N76.0 Acute vaginitis (principal)
CPT/HCPCS: 81515; 87491; 87591; 99283; 99284